=== PATIENT | female | born 1955 | race Caucasian/White ===

== ENCOUNTER 2017-01-19 20:49 | Emergency (ER) | payer OTHER ==
[2017-01-19 20:52] VITALS: TEMP 36.8; Ht 154.9 cm
[2017-01-19] MEDS ORDERED: KETOROLAC TROMETHAMINE 60 MG/2 ML VIAL IM STA (21:31)
--- NOTE | 2017-01-19 22:49 | DIAGNOSTIC IMAGING REPORT ---
CT LUMBAR SPINE WITHOUT CT DOSE: 560.18 mGy.cm CLINICAL HISTORY: fall off ladder, low back pain TECHNIQUE: Helical images were acquired in transverse plane. Reformatted sagittal and coronal images were reviewed. CONTRAST: No contrast was administered COMPARISON STUDY: None. FINDINGS: L1-2 level: There is acute superior endplate L1 compression fracture. There is no significant retropulsion. There is no disc herniation. There is no spinal or foraminal stenosis. L2-3 level: There is no significant disc bulge or focal herniation. There is no evidence of spinal or foraminal stenosis. L3-4 level: There is a minor circumferential disc bulge. There is mild triangular spinal canal narrowing. There is an acute superior endplate compression fracture. There is minimal retropulsion. The vertebral body has lost 25% of its height. L4-5 level: There is a tiny broad-based central disc protrusion.. There is mild spinal canal narrowing. There is no significant foraminal stenosis L5-S1 level: There is no evidence of significant disc bulge or focal herniation. There is no evidence of spinal or foraminal stenosis. There are multiple left renal calculi. IMPRESSION: 1. Acute superior endplate compression fractures at the L1 and L4 levels. 2. Left-sided nephrolithiasis Electronically signed by: Daniel Regan M.D. 01/19/2017 10:48 PM Dictated Date/Time: 01/19/2017 10:43 PM
[2017-01-19] MEDS ORDERED: OXYC-57 PO (23:27)
--- NOTE | 2017-01-19 23:31 | EMERGENCY ROOM VISIT NOTE ---
History Report prepared by Janak: Kris Qureshi Under the Supervision of: Dr. Adam Arceo D.O. First contact with patient: 21:26 Chief Complaint: BACK PAIN Stated Complaint: BACK PAIN, BLADDER PROBLEM? History of Present Illness The patient is a 61 year old female who presents to the Emergency Room with complaints of constant lower back pain due to a fall beginning just prior to arrival. She currently rates her discomfort as a 10/10 in severity. The patient states she was on an extendible ladder, approximately ten feet up, removing climbing cynthia from her mother's house. She notes the ladder slipped sideways, and she held onto the downspout until she could not hold on any longer. The patient states she fell in a seated position but angled on her side. She notes it knocked the wind out of her, and then she crawled to the front door for help. The patient complains of bilateral abdominal pain with today's symptoms. She denies hitting her head during the fall. The patient denies arm or leg pain. Source of History: patient Onset: just prior to arrival Position: back (lower) Symptom Intensity: 10/10 Quality: other (due to fall) Timing: constant Associated Symptoms: + abdominal pain, + back pain Review of Systems See HPI for pertinent positives & negatives. A total of 10 systems reviewed and were otherwise negative. Past Medical & Surgical Medical Problems: (1) S/P wisdom tooth extraction Family History Cancer Heart disease Hypertension Seizures Social History Smoking Status: Never Smoker Marital Status: single Occupation Status: employed Current/Historical Medications Scheduled PRN Oxycodone/Acetaminophen 5MG/325MG (Percocet 5MG/325MG), 1 TAB PO Q6H PRN for Pain Allergies Coded Allergies: Sulfa Drugs (Verified Allergy, Severe, 12/11/15) Flu Virus Vaccine (Verified Allergy, Unknown, thyroid pain, 12/11/15) Penicillins (Verified Allergy, Unknown, POSSIBLE ALLERGY, 12/11/15) Physical Exam Vital Signs Date Time Temp Pulse Resp B/P Pulse Ox O2 Delivery O2 Flow Rate FiO2 01/19/17 20:52 36.8 97 20 132/77 Room Air Physical Exam CONSTITUTIONAL/VITAL SIGNS: Reviewed / noted above. GENERAL: Non-toxic in appearance. INTEGUMENTARY: Warm, dry, and [place]. HEAD: Normocephalic. EYES: without scleral icterus or trauma. ENT/OROPHARYNX: clear and moist. LYMPHADENOPATHY/NECK: Is supple without lymphadenopathy or meningismus. RESPIRATORY: Lungs clear and equal. CARDIOVASCULAR: Regular rate and rhythm. GI/ABDOMEN: Soft and nontender. No organomegaly or pulsatile mass. No rebound or guarding. Normal bowel sounds. EXTREMITIES: Warm and well perfused. BACK: No CVA tenderness. NEUROLOGICAL: Intact without focal deficits. PSYCHIATRIC: normal affect. MUSCULOSKELETAL: Normally developed with good muscle tone. Medical Decision & Procedures ER Provider Diagnostic Interpretation: CT results as stated below per my review and radiologist interpretation: CT LUMBAR SPINE WITHOUT CT DOSE: 560.18 mGy.cm CLINICAL HISTORY: fall off ladder, low back pain TECHNIQUE: Helical images were acquired in transverse plane. Reformatted sagittal and coronal images were reviewed. CONTRAST: No contrast was administered COMPARISON STUDY: None. FINDINGS: L1-2 level: There is acute superior endplate L1 compression fracture. There is no significant retropulsion. There is no disc herniation. There is no spinal or foraminal stenosis. L2-3 level: There is no significant disc bulge or focal herniation. There is no evidence of spinal or foraminal stenosis. L3-4 level: There is a minor circumferential disc bulge. There is mild triangular spinal canal narrowing. There is an acute superior endplate compression fracture. There is minimal retropulsion. The vertebral body has lost 25% of its height. L4-5 level: There is a tiny broad-based central disc protrusion.. There is mild spinal canal narrowing. There is no significant foraminal stenosis L5-S1 level: There is no evidence of significant disc bulge or focal herniation. There is no evidence of spinal or foraminal stenosis. There are multiple left renal calculi. IMPRESSION: 1. Acute superior endplate compression fractures at the L1 and L4 levels. 2. Left-sided nephrolithiasis Electronically signed by: Daniel Regan M.D. 01/19/2017 10:48 PM Medications Administered Medications (Trade) Dose Ordered Sig/Anju Route Start Time Stop Time Status Last Admin Dose Admin Ketorolac Tromethamine (Toradol Inj) 60 mg NOW STAT IM 01/19/17 21:31 01/19/17 21:32 DC 01/19/17 21:56 60 MG ED Course 2127: Previous medical records were reviewed. The patient was evaluated in room B5. A complete history and physical examination was performed. 2130: Ordered Toradol Inj 60 mg IM. 2299: On reevaluation, the patient is doing well. I discussed the results and findings with the patient. She verbalized agreement of the treatment plan. The patient was discharged home. Medical Decision Differential includes close head injury, intracranial bleed, facial trauma, cervical spine trauma, chest and thoracic trauma, abdominal and intra-abdominal trauma, spine neurologic trauma, extremity trauma. This is a 61-year-old female who presents to the ED with a chief complaint of low back pain after falling off a ladder. Details listed above. A CT scan reveals compression fractures of L1 and L4 appear to be acute. The patient was treated with Toradol IM here. She drove her car here. Her pain did improve somewhat this. She was told the results of the test. She was given a referral to Dr. Mendez. She is given a Percocet home pack and a prescription for Percocet. She was given 3 days off work. She is felt to be stable for discharge and outpatient follow-up. She denies any bowel or bladder dysfunction. She has no neuro deficits on exam. Impression Primary Impression: Compression fracture of lumbar vertebra Scribe Attestation The scribe's documentation has been prepared under my direction and personally reviewed by me in its entirety. I confirm that the note above accurately reflects all work, treatment, procedures, and medical decision making performed by me. Departure Information Dispostion Home / Self-Care Prescriptions Oxycodone/Acetaminophen 5MG/325MG (PERCOCET 5MG/325MG) Tab 1 TAB PO Q6H Y for Pain, #30 TAB Prov: Adam Arceo D.O. 01/19/17 Referrals Tammy Garcia DO (PCP) Kulwinder Mendez D.O. Forms HOME CARE DOCUMENTATION FORM, IMPORTANT VISIT INFORMATION, Work Instructions Return To Work: 3 days Patient Instructions ED Fx Comp Vertebral, [employer] Additional Instructions Percocet as prescribed. No driving within 6 hours of use. Do not take additional Tylenol while taking Percocet. Follow-up with Dr. Mendez, back surgeon, for further evaluation of your symptoms. Call tomorrow for appointment. Return for any worsening or new concerns.
[2017-01-19] MEDS ORDERED: PERCOCET HOME PACK PO ONE (23:45)
[2017-01-20 00:11] VITALS: BP 125/73; PULSE 80; O2SAT 99
== END 2017-01-20 00:05 | disposition home or self-care (01) ==
LOC: C.EDB 20:49
DX: S32.010A Wedge compression fracture of first lumbar vertebra, initial encounter for closed fracture (principal); S32.040A Wedge compression fracture of fourth lumbar vertebra, initial encounter for closed fracture; W11.XXXA Fall on and from ladder, initial encounter; Y92.89 Other specified places as the place of occurrence of the external cause; Z80.9 Family history of malignant neoplasm, unspecified; Z82.49 Family history of ischemic heart disease and other diseases of the circulatory system